=== PATIENT | female | born 1955 | race Caucasian/White ===

== ENCOUNTER → 2017-02-18 | Outpatient (CLI) | payer OTHER ==
--- NOTE | 2017-02-18 11:26 | RAD ---
Lumbar spine, 2 views, 02/18/2017: History: Back and right hip pain The bony structures are demineralized. There is disc space narrowing with moderate marginal spurring at L5-S1. The other intervertebral disc spaces are fairly well preserved. There are mild spurs in the upper lumbar spine. There are mild degenerative changes involving facet joints in the lower lumbar spine. Scattered vascular calcifications are present. IMPRESSION: 1. Moderately severe degenerative disc disease at L5-S1. 2. No acute bony abnormality is detected. Right hip, 2 views, 02/18/2017: History: Hip pain The bony structures are demineralized. There is severe narrowing of the right hip joint with subchondral sclerosis, cyst formation and spurring. No fracture is identified. Extensive arterial calcifications are noted. IMPRESSION: 1. Demineralization. 2. Severe degenerative change at the right hip joint.
== END | disposition home or self-care (01) ==
LOC: RAD 09:41
PROVIDERS: ATTEND Surgery
DX: M51.37 Other intervertebral disc degeneration, lumbosacral region (principal); M81.0 Age-related osteoporosis without current pathological fracture; M16.11 Unilateral primary osteoarthritis, right hip
CPT/HCPCS: 72100; 73502